=== PATIENT | female | born 1995 | race Caucasian/White ===

== ENCOUNTER 2016-11-30 19:44 | Emergency (ER) | payer OTHER ==
[~2016-11-30] VITALS: Ht 165.1 cm; Wt 53.0 kg
[~2016-11-30 19:44] MED LIST: AMOX500T PO; LEVO100T4 PO; PRED50 PO; TRI-TAB PO
[2016-11-30 19:45] VITALS: BP 121/75; PULSE 74; RESP 16; TEMP 98.6; O2SAT 98
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
[2016-12-01] MEDS ORDERED: BACL10TA PO (01:13)
[2016-12-01] MEDS ORDERED: IBUP800T23 PO (01:13)
[2016-12-01] MEDS ORDERED: ORPHENADRINE INJ 60 MG/2 ML AMP IM ONE (01:15)
[2016-12-01] MEDS ORDERED: KETOROLAC TROMETHAMINE 60 MG/2 ML (IM) VIAL IM ONE (01:15)
[2016-12-01] MEDS ORDERED: LEVO125T4 PO (01:17)
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
== END 2016-12-01 02:28 | disposition home or self-care (01) ==
LOC: NEPD 19:44
DX: S16.1XXA Strain of muscle, fascia and tendon at neck level, initial encounter (principal); S39.012A Strain of muscle, fascia and tendon of lower back, initial encounter; S66.911A Strain of unspecified muscle, fascia and tendon at wrist and hand level, right hand, initial encounter; V43.52XA Car driver injured in collision with other type car in traffic accident, initial encounter; Y92.414 Local residential or business street as the place of occurrence of the external cause
CPT/HCPCS: 72100; 84703; 96372; 99284; J1885; J2360